=== PATIENT | male | born 1990 | race African-American/Black ===

== ENCOUNTER 2023-02-24 13:26 | Emergency (ER) | payer OTHER ==
[~2023-02-24] VITALS: Ht 188 cm; Wt 95.3 kg
[2023-02-24] MEDS ORDERED: ACETAMINOPHEN ES 500 MG TABLET PO ONE (14:30)
[2023-02-24] MEDS ORDERED: METOCLOPRAMIDE HCL 10 MG/2 ML VIAL IV ONE (14:30)
[2023-02-24] MEDS ORDERED: diphenhydrAMINE HCL 50 MG/ML VIAL IV ONE (14:30)
[2023-02-24] MEDS ORDERED: IV NS 0.9% 1,000 ML BAG IV ONE (14:30)
[2023-02-24 14:37] LABS: BASOPHILS % (AUTO) 0.6 % (0.0-2.0); EOSINOPHILS # (AUTO) 0.1 K/uL (0.0-0.7); EOSINOPHILS % (AUTO) 2.4 % (0.0-6.0); HEMATOCRIT 40 % (39-51); HEMOGLOBIN 13.4 g/dL (13.5-17.5); LYMPHOCYTES # (AUTO) 1.9 K/uL (0.8-4.8); LYMPHOCYTES % (AUTO) 34.6 % (20.0-44.0); MEAN CORPUSCULAR HEMOGLOBIN 33 PG (26.0-33.0); MEAN CORPUSCULAR HGB CONC 34 g/dl (31.0-36.0); MEAN CORPUSCULAR VOLUME 98 fL (80-96); MONOCYTES # (AUTO) 0.5 K/uL (0.1-1.30); MONOCYTES % (AUTO) 8.3 % (2.0-12.0); NEUTROPHILS % (AUTO) 54.1 % (43.0-81.0); PLATELET COUNT (AUTO) 285 K/uL (150-450); RED BLOOD CELL COUNT(AUTO) 4.08 MIL/uL (4.5-6.0); RED CELL DISTRIBUTION WIDTH 12.4 % (11.5-15.0); WHITE BLOOD COUNT (AUTO) 5.6 K/uL (4.3-11.0)
[2023-02-24 14:52] LABS: CALCIUM, SERUM 9.2 mg/dL (8.5-10.1); CREATININE 1.1 mg/dL (0.6-1.3); POTASSIUM 4.1 mmol/L (3.5-5.1)
[2023-02-24] MEDS ORDERED: diphenhydrAMINE HCL 50 MG/ML VIAL ONE (14:54)
[2023-02-24] MEDS ORDERED: ACETAMINOPHEN ES 500 MG TABLET ONE (14:54)
[2023-02-24] MEDS ORDERED: METOCLOPRAMIDE HCL 10 MG/2 ML VIAL ONE (14:54)
[2023-02-24 14:58] LABS: ALBUMIN 3.7 g/dL (3.4-5.0); BILIRUBIN,DIRECT 0.2 mg/dL (0.0-0.2); BILIRUBIN,TOTAL 0.8 mg/dL (0.2-1.0); TOTAL PROTEIN, SERUM 7.6 g/dL (6.4-8.2)
[2023-02-24] MEDS ORDERED: KETOROLAC TROMETHAMINE INJ 30 MG/ML VIAL IV ONE (16:30)
[2023-02-24] MEDS ORDERED: dexaMETHasone SOD PHOSPHATE 10 MG/ML VIAL IV ONE (16:30)
[2023-02-24] MEDS ORDERED: dexaMETHasone SOD PHOSPHATE 10 MG/ML VIAL ONE (16:55)
[2023-02-24] MEDS ORDERED: KETOROLAC TROMETHAMINE 15 MG/ML VIAL ONE (16:55)
[2023-02-24 17:40] VITALS: BP 135/74; TEMP 97.8; O2SAT 99
== END 2023-02-24 17:40 | disposition home or self-care (01) ==
LOC: ER 13:36
DX: R51.9 Headache, unspecified (principal)
CPT/HCPCS: 99285; 96374; 96375; 70450; 96361; 93005; 85025; 80048; 80076; 36415; 82962; J1100; J1200; J2765; J7030; J1885; J7040

== ENCOUNTER 2024-05-07 09:46 | Emergency (ER) | payer OTHER ==
[~2024-05-07] VITALS: Ht 188 cm; Wt 99.8 kg
[2024-05-07] MEDS ORDERED: IBUPROFEN 400 MG TABLET ONE (10:11)
[2024-05-07] MEDS: IBUPROFEN 400 MG TABLET PO ONE (10:11)
[2024-05-07 11:24] VITALS: BP 136/90; TEMP 97.2; O2SAT 100
== END 2024-05-07 11:25 | disposition home or self-care (01) ==
LOC: ER 09:50
DX: R07.9 Chest pain, unspecified (principal); R94.31 Abnormal electrocardiogram [ECG] [EKG]
CPT/HCPCS: 71045-TC

== ENCOUNTER 2024-10-23 00:38 | Emergency (ER) | payer OTHER ==
[~2024-10-23] VITALS: Ht 185.4 cm; Wt 95.3 kg
[2024-10-23] MEDS ORDERED: RALT400T PO (04:10)
[2024-10-23] MEDS ORDERED: EMTR1TAB12 PO (04:10)
[2024-10-23 04:17] VITALS: BP 123/79; TEMP 98.5; O2SAT 97
[2024-10-23 04:46] LABS: ALBUMIN 4.2 g/dL (3.4-5.0); BILIRUBIN,TOTAL 0.4 mg/dL (0.2-1.0); CALCIUM, SERUM 9.3 mg/dL (8.5-10.1); CREATININE 1.1 mg/dL (0.6-1.3); POTASSIUM 4.3 mmol/L (3.5-5.1); TOTAL PROTEIN, SERUM 8.3 g/dL (6.4-8.2)
[2024-10-23 04:58] LABS: BASOPHILS % (AUTO) 0.3 % (0.0-2.0); EOSINOPHILS # (AUTO) 0.1 K/uL (0.0-0.7); EOSINOPHILS % (AUTO) 1.8 % (0.0-6.0); HEMATOCRIT 40 % (39-51); HEMOGLOBIN 13.7 g/dL (13.5-17.5); LYMPHOCYTES # (AUTO) 2.7 K/uL (0.8-4.8); LYMPHOCYTES % (AUTO) 43.8 % (20.0-44.0); MEAN CORPUSCULAR HEMOGLOBIN 33 PG (26.0-33.0); MEAN CORPUSCULAR HGB CONC 34 g/dl (31.0-36.0); MEAN CORPUSCULAR VOLUME 98 fL (80-96); MONOCYTES # (AUTO) 0.5 K/uL (0.1-1.30); NEUTROPHILS # (AUTO) 2.8 K/uL (1.8-8.9); NEUTROPHILS % (AUTO) 46.1 % (43.0-81.0); PLATELET COUNT (AUTO) 230 K/uL (150-450); RED BLOOD CELL COUNT(AUTO) 4.11 MIL/uL (4.5-6.0); RED CELL DISTRIBUTION WIDTH 11.9 % (11.5-15.0); WHITE BLOOD COUNT (AUTO) 6.2 K/uL (4.3-11.0)
[2024-10-23 14:20] LABS: HIV-1 p24 ANTIGEN NON REACTIVE (NONREACTIVE); HIV-1/2 ANTIBODY NON REACTIVE (NONREACTIVE)
[2024-10-24 04:06] LABS: HBSAG SCREEN Negative (Negative); HEPATITIS A AB, IgM Negative (Negative); HEPATITIS B CORE AB, IgM Negative (Negative)
== END 2024-10-23 04:17 | disposition home or self-care (01) ==
LOC: ER 00:40
DX: S69.81XA Other specified injuries of right wrist, hand and finger(s), initial encounter (principal); Z79.624 Long term (current) use of inhibitors of nucleotide synthesis; W46.0XXA Contact with hypodermic needle, initial encounter; Y93.E5 Activity, floor mopping and cleaning; Y92.038 Other place in apartment as the place of occurrence of the external cause; Y99.0 Civilian activity done for income or pay
CPT/HCPCS: 36415; 80053-TC; 85025-TC; 87806